=== PATIENT | male | born 1985 | race Caucasian/White ===

== ENCOUNTER 2018-12-09 16:43 | Emergency (ER) | payer MEDICAID, OTHER ==
[~2018-12-09] VITALS: Ht 165.1 cm; Wt 78.1 kg
[2018-12-09 16:58] VITALS: Ht 165.1 cm; Wt 78.1 kg
[2018-12-09] MEDS ORDERED: KETOROLAC 30 MG INJ IV STA (18:52)
[2018-12-09] MEDS ORDERED: DEXAMETHASONE 10 MG/ML 1 ML INJ IV ONE (19:00)
[2018-12-09] MEDS ORDERED: CEFTRIAXONE 2 GM/50 ML (PMX) 50 ML IVPB ONE (19:00)
[2018-12-09] MEDS ORDERED: SOD CHLORIDE 0.9% 100 ML ONE (19:58)
[2018-12-09] MEDS ORDERED: IOHEXOL 300MG/ML 150 ML BTL ONE (19:58)
--- NOTE | 2018-12-09 20:08 | ERD ---
ER Documentation Chief Complaint Chief Complaint c/o sore throat and right ear pain x1 week HPI This patient is a 33-year-old male with no significant past medical history presenting to the emergency department complaining of sore throat which has been worsening over the past 1 week. Associated symptoms include fevers. He took Tylenol at home with some relief. Last Tylenol was taken yesterday. The patient states the pain is worse on the right side of the throat. He reports difficulty swallowing secondary to pain. He denies any drooling. He denies any sick contacts. Pain is constant and rated 9/10 in severity. No other symptoms reported at this time. ROS All systems reviewed and are negative except as per history of present illness. Medications Home Meds Active Scripts Naproxen* (Naprosyn*) 500 Mg Tablet, 500 MG PO BID PRN for PAIN AND/OR INFLAMMATION, #30 TAB Prov:ABDULLAHI BELL PA-C 12/09/18 Hydrocodone/Acetaminophen (Avalon 5-325 Tablet) 1 Each Tablet, 1 TAB PO Q6H PRN for PAIN, #7 TAB Prov:ABDULLAHI BELL PA-C 12/09/18 Amoxicillin/Potassium Clav (Amox-Clav 875-125 mg Tablet) 875-125 mg Tab, 1 TAB PO BID for 10 Days, #20 TAB Prov:ABDULLAHI BELL PA-C 12/09/18 Allergies Allergies: Coded Allergies: No Known Allergies (Verified Allergy, Unknown, 12/09/18) PMhx/Soc Medical and Surgical Hx: pt denies Medical Hx, pt denies Surgical Hx History of Surgery: No Hx Neurological Disorder: No Hx Respiratory Disorders: No Hx Cardiac Disorders: No Hx Psychiatric Problems: No Hx Miscellaneous Medical Probl: No Hx Alcohol Use: No Hx Substance Use: No Hx Tobacco Use: No Smoking Status: Never smoker FmHx Family History: No diabetes Physical Exam Vitals Physical Exam Const: No acute distress Head: Atraumatic Eyes: Normal Conjunctiva ENT: Normal External Ears, Nose and Mouth. There is fullness noted to the right posterior pharynx. The uvula is edematous. The airway is patent. Neck: Full range of motion. No meningismus. Anterior cervical lymphadenopathy, worse on the right. Resp: Clear to auscultation bilaterally. No respiratory distress. Cardio: Regular rate and rhythm, no murmurs Skin: No petechiae or rashes Back: No midline or flank tenderness Ext: No cyanosis, or edema Neur: Awake and alert Psych: Normal Mood and Affect Results 24 hrs Laboratory Tests Test 12/09/18 19:07 White Blood Count 20.2 10^3/ul Red Blood Count 4.63 10^6/ul Hemoglobin 13.7 g/dl Hematocrit 40.5 % Mean Corpuscular Volume 87.5 fl Mean Corpuscular Hemoglobin 29.6 pg Mean Corpuscular Hemoglobin Concent 33.8 g/dl Red Cell Distribution Width 11.9 % Platelet Count 422 10^3/UL Mean Platelet Volume 9.6 fl Immature Granulocytes % 0.700 % Neutrophils % 67.4 % Lymphocytes % 14.7 % Monocytes % 14.4 % Eosinophils % 2.1 % Basophils % 0.7 % Nucleated Red Blood Cells % 0.0 /100WBC Immature Granulocytes # 0.150 10^3/ul Neutrophils # 13.6 10^3/ul Lymphocytes # 3.0 10^3/ul Monocytes # 2.9 10^3/ul Eosinophils # 0.4 10^3/ul Basophils # 0.2 10^3/ul Nucleated Red Blood Cells # 0.0 10^3/ul Sodium Level 138 mmol/L Potassium Level 4.1 mmol/L Chloride Level 99 mmol/L Carbon Dioxide Level 27 mmol/L Anion Gap 12 Blood Urea Nitrogen 14 mg/dl Creatinine 0.70 mg/dl Est Glomerular Filtrat Rate mL/min > 60 mL/min Glucose Level 115 mg/dl Calcium Level 9.5 mg/dl Total Bilirubin 0.3 mg/dl Direct Bilirubin 0.00 mg/dl Indirect Bilirubin 0.3 mg/dl Aspartate Amino Transf (AST/SGOT) 32 IU/L Alanine Aminotransferase (ALT/SGPT) 71 IU/L Alkaline Phosphatase 111 IU/L Total Protein 8.5 g/dl Albumin 4.6 g/dl Globulin 3.90 g/dl Albumin/Globulin Ratio 1.17 Current Medications Medications Dose Sig/Oscar Start Time Status Last (Trade) Ordered Route PRN Stop Time Admin Dose Reason Admin Ceftriaxone 50 ml @ ONCE ONCE 12/09/18 DC 12/09/18 Sodium 100 mls/hr IVPB 19:00 19:43 12/09/18 19:29 10 mg ONCE ONCE 12/09/18 DC 12/09/18 Dexamethasone IV 19:00 19:22 (Decadron) 12/09/18 19:01 Ketorolac 30 mg ONCE STAT 12/09/18 DC 12/09/18 Tromethamine IV 18:52 19:22 (Toradol) 12/09/18 18:56 IV Flush 10 ml STK-MED 12/09/18 DC (NS 10 ml) ONCE .ROUTE 19:58 12/09/18 19:59 Sodium 100 ml @ ud STK-MED 12/09/18 DC Chloride ONCE .ROUTE 19:58 12/09/18 19:59 Iohexol 150 ml STK-MED 12/09/18 DC (Omnipaque ONCE .ROUTE 19:58 300mg/ ml) 12/09/18 19:59 [place] [address] Radiology Main Line: [phone] DIAGNOSTIC IMAGING REPORT Patient: LYNDSEY LEVINE : 1985 Age: 33 Sex: M MR #: [id number] DOS: 12/09/18 0000 Ordering MD: ABDULLAHI BELL PA-C Location: [facility] Room/Bed: PROCEDURE: XR Chest. CLINICAL INDICATION: cough and fever TECHNIQUE: Single frontal view of the chest COMPARISON: None FINDINGS: No focal pulmonary consolidation. The heart and mediastinum are within normal limits. There is no pleural effusion or pneumothorax. Bones and soft tissues are unremarkable. IMPRESSION: No acute cardiac or pulmonary findings. RPTAT:HCLE Physician Sadia Date Time Electronically viewed and signed by brady Duarte Physician on 12/09/2018 21:20 cE/ CC: ABDULLAHI BELL PA-C [id number] [place] [id number] Radiology Main Line: [phone] DIAGNOSTIC IMAGING REPORT Patient: LYNDSEY LEVINE : 1985 Age: 33 Sex: M [id number] [id number] DOS: 12/09/18 0000 Ordering MD: ABDULLAHI BELL PA-C Location: [facility] Room/Bed: PROCEDURE: CT scan of the neck with contrast. CLINICAL INDICATION: Right-sided throat pain and swelling. TECHNIQUE: A CT scan of the neck was performed with intravenous contrast. Coronal and sagittal reformats were generated. 85 cc of Omnipaque 300 were administered during examination without complication. DICOM images are available. CTDIvol: 9.59 mGy. DLP: 251.81 mGy-cm. One or more of the following dose reduction techniques were used: - Automated exposure control. - Adjustment of the mA and/or kV according to patient size. - Use of iterative reconstruction technique. COMPARISON: None. FINDINGS: The right palatine tonsil is asymmetrically enlarged. There is fat infiltration in the right parapharyngeal space. The right hypopharyngeal wall is thickened and edematous. No rim enhancing fluid collection is identified to suggest the presence of an abscess. There are enlarged bilateral level 2a lymph nodes. No mass is identified in the suprahyoid and infrahyoid spaces of the neck. The major salivary glands are unremarkable. No suspicious thyroid lesion is identified. The carotid arteries are unremarkable. There is reversal of the cervical lordosis. The visualized intracranial structures are unremarkable. The visualized paranasal sinuses and mastoid air cells are clear. The lung apices are also clear. IMPRESSION: Asymmetric enlargement of the right palatine tonsil, consistent tonsillitis. There is fat infiltration in the right parapharyngeal space, possibly representing cellulitis. The right hypopharyngeal wall is thickened and edematous. No tonsillar or peritonsillar abscess is identified. Enlarged bilateral level 2a lymph nodes, possibly reactive. Reversal of the cervical lordosis. RPTAT: HTAR .Dante Chanel MD, Date Time Electronically viewed and signed by .Dante Chanel MD, MD on 12/09/2018 20:50 .R/ CC: ABDULLAHI BELL PA-C [id number] Procedures/MDM 33-year-old male presented to the emergency department complaining of severe sor e throat. Examination was concerning for possible peritonsillar abscess and therefore CT neck soft tissue with IV contrast was obtained. I discussed this case with attending ED physician, Dr. Shruthi Burnett, who is in agreement with the overall assessment, plan and ED course. Patient was administered IV antibiotics, IV steroids and IV analgesic. He was significantly improved on reevaluation. No evidence to suggest sepsis, meningitis, or other emergencies. Full report of imaging studies interpreted by the radiologist may be viewed above. The patient was otherwise stable for discharge and further outpatient management. He was in agreement with the diagnosis, plan, need for follow-up, return precautions. Departure Diagnosis: Primary Impression: Sore throat Condition: Fair Patient Instructions: When You Have a Sore Throat Additional Instructions: Follow up with your PCP within the next 1-3 days for a repeat evaluation. If you require a referral to a specialist, your Primary Care Provider may be able to p rovide this for you. In most patient cases, a referral is not required. If you have further questions regarding this matter, please ask your Primary Care Provider. Return the the emergency department immediately if symptoms worsen or change. If you have any questions regarding medications, ask your pharmacist or us before you leave. If any adverse reactions, occur while taking your medications, discontinue the treatment and return to the emergency department immediately. If any new or worsening symptoms, uncontrolled fevers, or other unexplained symptoms occur, return to the emergency department immediately. Take your medications as directed, and complete the entire course of treatment. ABDULLAHI BELL PA-C Dec 09, 2018 20:08
[2018-12-09] MEDS ORDERED: NAPR-985 PO (21:28)
[2018-12-09] MEDS ORDERED: HYDR-4011 PO (21:28)
[2018-12-09] MEDS ORDERED: AMOX1TAB10 PO (21:28)
[2018-12-09 21:41] VITALS: BP 133/84; PULSE 73; RESP 19
== END 2018-12-09 21:43 | disposition home or self-care (01) ==
LOC: FTE 16:43
DX: J02.9 Acute pharyngitis, unspecified (principal)
CPT/HCPCS: 36415; 70491; 71045; 80053; 85025; 96374; 96375; J0696; J1100; J1885; Q9967; Z7502; Z7610